=== PATIENT | female | born 1950 | race Hispanic/Latino ===

== ENCOUNTER 2024-08-05 10:36 | Emergency (ER) | payer SELFPAY ==
[2024-08-05] VITALS (7 sets, daily range): BP systolic 126–179; BP diastolic 67–108; BMI 27.4
[2024-08-05 11:37] LABS: % Basophils 0.9 % (0-2); % Eosinophils 0.6 % (0-6); % Immature Granulocytes 0.3 % (0-0.5); % Lymphocytes 27.2 % (20.5-51.1); % Monocytes 6.4 % (1.7-9.3); % Neutrophils 64.6 % (42.2-75.2); Absolute Basophils 0.1 10^3/uL (0-0.2); Absolute Eosinophils 0.1 10^3/uL (0-0.7); Absolute Lymphocytes 2.1 10^3/uL (1.2-3.4); Absolute Monocytes 0.5 10^3/uL (0.1-0.6); Hematocrit 38.2 % (37.0-47.0); Hemoglobin 13.1 g/dL (12.0-16.0); Mean Corp Hgb Conc. 34.3 g/dL (33.0-37.0); Mean Corpuscular Hgb 29.7 pg (27.0-31.0); Mean Corpuscular Volume 86.6 fL (81.0-99.0); Mean Platelet Volume 9.4 fL (7.4-10.4); Nucleated Red Blood Cells % 0 %; Platelet Count 309 10^3/uL (130-400); Red Blood Cell Count 4.41 10^6/uL (4.20-5.40); Red Cell Dist. Width 13.2 % (11.5-14.5); White Blood Cell Count 7.8 10^3/uL (4.8-10.8)
[2024-08-05 11:57] LABS: ALT (SGPT) 16 U/L (0-35); AST (SGOT) 24 U/L (14-36); Albumin 4.4 g/dl (3.5-5.0); Alkaline Phosphatase 98 U/L (38-126); Blood Urea Nitrogen 15 mg/dl (7-17); Calcium 9.3 mg/dl (8.4-10.2); Carbon Dioxide 30 mmol/L (22-30); Chloride 102 mmol/L (98-107); Estimated Creatinine Clearance 66 ml/min; Glucose 109 mg/dl (70-99); Lipase 19 U/L (23-300); Potassium 3.5 mmol/L (3.5-5.1); Sodium 141 mmol/L (135-145); Total Bilirubin 0.6 mg/dl (0.2-1.3); Total Protein 7.5 g/dl (6.3-8.2); eGFR > 60.00
[2024-08-05] MEDS: NSS 1000 IV (12:00)
[2024-08-05] MEDS: DILAUDID 0.5 MG IV (12:00)
[2024-08-05] MEDS: ZOFRAN 4 MG IV (12:00)
[2024-08-05 12:25] LABS: Urine Albumin Negative (Neg - Trace); Urine Bilirubin Negative (Negative); Urine Character Clear (Clear); Urine Color Straw; Urine Glucose Negative (Negative); Urine Ketone Negative (Negative); Urine Leukocyte 1+ (Negative); Urine Nitrite Negative (Negative); Urine Occult Blood Negative (Negative); Urine Urobilinogen Negative (Neg - 1+)
[2024-08-05 12:37] LABS: Urine Bacteria Few (Negative); Urine Red Blood Cell 0-2 /HPF (0-2); Urine Squamous Cell 0-2 /LPF (Few); Urine White Cell 0-2 /HPF (0-5)
--- NOTE | 2024-08-05 12:57 | ED.GENMED ---
History of Present Illness
General
Chief Complaint: Abdominal Symptoms
Source: patient and family
Exam Limitations: other (language)
Time Seen by Provider: 08/05/24 11:02
Nursing documentation reviewed up to this point in time: agreed with
History of Present Illness
History of Present Illness:
Patient is a 73-year-old female presents to the emergency department complaining of increasing abdominal pain for the past 3 days. Patient has a history of a hernia and also an ovarian cyst. Patient has had pain in the right upper quadrant
consistent with her hernia and pain in the left lower quadrant consistent with her ovarian cyst. Pain seems to be getting worse. Patient's nauseous without vomiting. Patient's had 2-3 episodes of soft/liquidy diarrhea. Patient's had fever and
chills. Pain so severe she cannot walk. Patient is also noted hematuria and dysuria. Patient denies chest pain, shortness of breath, nasal congestion, sore throat or cough. Patient's appetite is diminished.
Past History
Past History
ED Past Medical History: HTN, Hypercholesterolemia and Hypothyroidism
Social History
Tobacco: Non-smoker
Review of Systems
Review of Systems
All Other Systems: ROS reviewed and negative except as documented in HPI and ROS
Constitutional: Reports fever, fatigue and chills
EENT: Reports no symptoms
Respiratory: Reports no symptoms
Cardiac: Reports no symptoms
ABD/GI: Reports abdominal pain, nausea, diarrhea and anorexia; Denies vomiting, bloody stools or black stools
: Reports dysuria and bleeding
Musculoskeletal: Reports no symptoms
Skin: Reports no symptoms
Neurological: Reports no symptoms
Hematologic/Lymphatic: Reports no symptoms
Psychiatric: Reports no symptoms
Phy Exam
Physical Exam
Physical Exam:
Physical Exam
General: moderate distress, alert and appropriate, well nourished, well hydrated
HENT: Normocephalic, supple with no lymphadenopathy, no thyromegaly
Eyes: Clear sclera, conjuctiva without injection
Heart: Regular rhythm and rate. No S3, S4. No murmur. No NVD
Lungs: No respiratory distress, no stridor, lung sounds clear and equal bilaterally
Abdomen: Soft, moderaste diffuse tenderness wiwth mild diffuse guarding but no rebound, no organomegaly, no CVA tenderness, BS good
Neuro: Alert and oriented x 3, CN II - XII intact, no motor focality
Skin: no rash
Psychiatric: well kept. interactive and cooperative
Extremities: No edema, cyanosis, tenderness
Course
Orders/Labs/Results
Orders:
Orders
08/05/24 11:28
Complete Blood Count/With Diff Urgent
Comprehensive Metabolic Panel Urgent
Lipase Urgent
08/05/24 11:51
CT Abd/Pel (IV only)-DH only Urgent
Comment:
Reason For Exam: diffuse abd tender
0.9% Sodium Chloride 1000 ml [Nss] 1,000 ml IV BOLUS
HYDROmorphone [Dilaudid] 0.5 mg IV NOW STA
Ondansetron Injectable [Zofran] 4 mg IV NOW STA
08/05/24 11:59
Urinalysis Reflex To Culture Urgent
Date Specimen was Collected: 08/05/24
Time Specimen was Collected: 11:57
Urine Microscopic Reflex Cult Urgent
Urine Culture Urgent
BUD Source: U
Specimen Description:
Date Specimen was Collected: 08/05/24
Time Specimen was Collected: 11:57
08/05/24 12:56
Diphenhydramine [Benadryl] 12.5 mg IV NOW STA
Prochlorperazine [Compazine] 5 mg IV NOW STA
Abnormal Lab Results
08/05/24 08/05/24
11:28 11:59
Glucose 109 H mg/dl
(70-99)
Lipase 19 L U/L
(23-300)
Leukocyte Esterase Rfl 1+ A
(Negative)
Urine Bacteria (Reflex) Few A
(Negative)
08/05/24 11:28
08/05/24 11:28
Vital Signs
Initial and Last Documented VS:
Initial Vital Signs
Temp Pulse Resp BP Pulse Ox
98.7 F 61 18 145/108 100
08/05/24 10:56 08/05/24 10:56 08/05/24 10:56 08/05/24 10:56 08/05/24 10:56
Last Documented Vital Signs
Temp Pulse Resp BP Pulse Ox
98.7 F 63 13 139/68 97
08/05/24 10:56 08/05/24 14:15 08/05/24 14:15 08/05/24 14:07 08/05/24 14:15
*Radiology
Radiology exam reviewed: radiology read reviewed (Nothing acute)
*Pulse Oximetry
Patient hypoxic: no
*EKG
Interpreted by ED Provider?: NA
*Sign Writer Letterer Or Painter Interpretation
Rate: Sign Writer Letterer Or Painter- N/A
*Critical Care Note
Total Time (30-74mins, 75-104mins- exclusive of procedures): Not Applicable
Update Note
Update Note:
I reviewed the patient's records over the past approximately 10 years that have included MRIs/MRIs of the abdomen CT angio of the abdomen, ultrasounds and multiple other studies and labs. Patient's daughter has gluten intolerance. Patient does
complain of bloating with eating. Will try the patient on Augmentin and Bentyl in addition to gluten-free diet. Patient will refer to GI.
ED Attending Note
-
Portions of this chart may have been created with voice recognition software.� Occasional wrong word or��sound alike� substitutions may have occurred due to the inherent limitations of voice recognition software.
Discharge Plan
Departure
Patient Disposition: Home (Routine Discharge)
Date of Disposition: 08/05/24
Time of Disposition: 16:37
Patient with high blood pressure during this ER visit?: Yes
Condition: Fair
Covid-19: Not Applicable
Discharge Problem:
Nonspecific abdominal pain
Instructions: Gluten-free diet, Abdominal Pain
Prescriptions:
New
amoxicillin-pot clavulanate 875-125 mg tablet
1 tab PO BID Qty: 14 0RF
dicyclomine 10 mg capsule
10 mg PO QID Qty: 30 0RF
Referrals:
Lashay Mccormick DO [Family Provider] - Follow up in 5-7 days
Reina Oneill MD [Active] - Call in 1-3 days for appt
Interventions
Interventions:
*Risk Screen - Suicide Last Done: 08/05/24 10:56
*General Assessment Last Done: 08/05/24 10:56
*Neglect/Abuse Screening Last Done: 08/05/24 10:56
ED- Fall Risk Assessment Last Done: 08/05/24 11:20
*ED COVID-19 Vaccine History Last Done: 08/05/24 11:20
IB-Dfytyl-Kbegnqdkxv Assessment Last Done: 08/05/24 11:20
Discharge Date and Time
Print Language: [id number]
[2024-08-05] MEDS: COMPAZINE 5 MG IV (12:59)
[2024-08-05] MEDS: BENADRYL 12.5 MG IV (12:59)
== END 2024-08-05 16:55 | disposition home or self-care (01) ==
LOC: EMR 10:36
PROVIDERS: EMERGENCY PHYSICIAN Emergency Medicine; FAMILY PHYSICIAN Family Medicine
DX: R10.11 Right upper quadrant pain (principal); I10 Essential (primary) hypertension; E78.00 Pure hypercholesterolemia, unspecified; E03.9 Hypothyroidism, unspecified
CPT/HCPCS: 99284; 96374; 96375; 96361; 74177; 80053; 81003; 81015; 83690; 85025; 87086; Q9967